=== PATIENT | female | born 1970 | race Caucasian/White ===

== ENCOUNTER 2017-04-28 16:58 | Emergency (ER) | payer MEDICARE, OTHER ==
[~2017-04-28 16:58] MED LIST: ALBUTEROL17 GM INH; AUGMENTIN PO; BENTYL20 M1 PO; CARBAMAZEPINE200 M2 PO; CELEXA PO; DARVOCET-N 1001 TAB PO; EASY-LAX100 MG PO; EX-LAX15 MG PO; FLEXERIL; FLEXERIL PO; FLEXERIL10 MG PO; HYDROCODONE/APA1 T16 PO; IBUPROFEN800 MG PO; KEFLEX PO; KLONOPIN2 MG PO; LEVOTHYROXINE25 MC1 PO; LEVOXYL50 MC1 PO; LORTAB 10-5001 EACH; LORTAB 7.5-3251 EACH PO; MEDROL4 MG/DOSE-; MOBIC PO; MOTRIN600 M1 PO; MOTRIN600 MG PO; PANTOPRAZOLE SO20 MG PO; PHENERGAN DM PO; PHENERGAN25 M1 PO; PREDNISONE PO; PREDNISONE10 MG/DOSE PO; SEROQUEL PO; SKELAXIN PO; TEGRETOL PO; TEGRETOL XR PO; TEGRETOL100 MG; TESSALON200 MG PO; VICODIN 5/1 TAB 5/50 PO; VICODIN 5/500 T1 TAB PO; VOLTAREN75 MG PO; ZANAFLEX; ZANAFLEX4 M1 PO; ZOFRANODT PO; ZOLOFT PO; ZOLOFT100 MG PO
== END 2017-04-28 17:46 | disposition home or self-care (01) ==
LOC: SED 16:58
DX: S40.862A Insect bite (nonvenomous) of left upper arm, initial encounter (principal); J44.9 Chronic obstructive pulmonary disease, unspecified; Z91.040 Latex allergy status; Z98.51 Tubal ligation status; Z88.8 Allergy status to other drugs, medicaments and biological substances; Z79.899 Other long term (current) drug therapy; W57.XXXA Bitten or stung by nonvenomous insect and other nonvenomous arthropods, initial encounter
CPT/HCPCS: 99283